=== PATIENT | male | born 1995 | race Caucasian/White ===

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

== ENCOUNTER 2018-11-12 22:27 | Emergency (ER) | payer BC, SELFPAY ==
[2018-11-12] MEDS ORDERED: Ibuprofen 800 MG TAB ONE (22:55)
--- NOTE | 2018-11-12 23:16 | RAD ---
Frontal and lateral imaging thoracic spine: 11/12/2018 COMPARISON: None HISTORY: Pain FINDINGS: Thoracic pedicles appear intact on frontal imaging. Lateral examination demonstrates no acute osseous abnormality. Vertebral body height and alignment is grossly unremarkable. IMPRESSION: No acute findings.
== END 2018-11-12 23:24 | disposition home or self-care (01) ==
LOC: MADERS 22:27
DX: M54.6 Pain in thoracic spine (principal)
CPT/HCPCS: 72072